=== PATIENT | female | born 1985 | race African-American/Black ===

== ENCOUNTER 2016-11-22 09:46 | Emergency (ER) | payer BC ==
[~2016-11-22] VITALS: Wt 69.0 kg
[2016-11-22] MEDS ORDERED: ONDANSETRON (ODT) 4 MG TAB ODT STA (10:17)
[2016-11-22 10:20] LABS: URINE BLOOD (Dip) POC 3+ (NEGATIVE)
--- NOTE | 2016-11-22 10:35 | ERD ---
ER Documentation Chief Complaint Date/Time DATE: 11/22/16 TIME: 10:32 Chief Complaint VAG BLEED ? WEEKS PREG HPI This is a 31-year-old female who presents to emergency department today for vaginal bleeding that started yesterday. Patient states that she thinks she passed a clot. Since that she has had some lower abdominal cramping and some nausea. States that she recently took a home test that was positive. She is unsure how many weeks she is. States she took Tylenol last night for pain. Denies any fevers or chills. ROS All systems reviewed and are negative except as per history of present illness. Medications Home Meds Active Scripts Ondansetron Hcl* (Zofran*) 4 Mg Tablet, 4 MG PO Q6H for NAUSEA AND/OR VOMITING, #30 TAB Prov:FABRIZIO KELLOGG PA-C 11/22/16 Acetaminophen* (Tylophen*) 500 Mg Capsule, 1 CAP PO Q6H Y for PAIN AND OR ELEVATED TEMP, #30 CAP Prov:FABRIZIO KELLOGG PA-C 11/22/16 Nitrofurantoin Monohyd Macrocr* (Macrobid*) 100 Mg Capsr, 100 MG PO BID for 7 Days, CAP Prov:FABRIZIO KELLOGG PA-C 11/22/16 Allergies Allergies: Coded Allergies: No Known Allergy (Unverified , 11/22/16) PMhx/Soc Hx Alcohol Use: Yes Hx Substance Use: No Hx Tobacco Use: No Physical Exam Vitals Vital Signs Date Time Temp Pulse Resp B/P Pulse Ox O2 Delivery O2 Flow Rate FiO2 11/22/16 09:49 98.0 82 18 135/64 99 Physical Exam Const: No acute distress Head: Atraumatic Eyes: Normal Conjunctiva ENT: Normal External Ears, Nose and Mouth. Neck: Full range of motion..~ No meningismus. Resp: Clear to auscultation bilaterally Cardio: Regular rate and rhythm, no murmurs Abd: Soft, mild suprapubic tenderness non distended. Normal bowel sounds. No right lower quadrant pain. No left lower quadrant pain. No tenderness at McBurney's. Skin: No petechiae or rashes Neur: Awake and alert Psych: Normal Mood and Affect Result Diagram: 11/22/16 1035 Results 24 hrs Laboratory Tests Test 11/22/16 10:10 11/22/16 10:20 11/22/16 10:35 Urine Bacteria MANY Urine Bilirubin NEGATIVE Urine Clarity CLEAR Urine Color LT. YELLOW Urine Epithelial Cells MANY Urine Glucose NEGATIVE% Urine Hemoglobin 3+ Urine Ketones 15 Urine Leukocyte Esterase 1+ Urine Microscopic RBC >50/HPF Urine Microscopic WBC 25-50/HPF Urine Nitrite NEGATIVE Urine Specific [place] 1.015 Urine Total Protein TRACE Urine Urobilinogen 0.2 E.U./dL Urine pH 6.0 Bedside Urine Blood 3+ Bedside Urine Glucose (UA) Negative Bedside Urine Ketones (LAB) 1+ Bedside Urine Leukocyte Esterase (L Trace Bedside Urine Nitrite (LAB) Negative Bedside Urine Protein (LAB) 1+ Bedside Urine pH (LAB) 5.5 Basophils # 0.110^3/ul Basophils % 0.8% Beta HCG, Quantitative 28.9mIU/ml Eosinophils # 0.110^3/ul Eosinophils % 1.1% Hematocrit 38.1% Hemoglobin 12.9g/dl Lymphocytes # 1.610^3/ul Lymphocytes % 20.4% Mean Corpuscular Hemoglobin 29.2pg Mean Corpuscular Hemoglobin Concent 33.9g/dl Mean Corpuscular Volume 86.0fl Mean Platelet Volume 8.1fl Monocytes # 0.310^3/ul Monocytes % 3.3% Neutrophils # 5.710^3/ul Neutrophils % 74.4% Nucleated Red Blood Cells # 0.010^3/ul Nucleated Red Blood Cells % 0.0/100WBC Platelet Count 23419^3/UL Red Blood Count 4.4410^6/ul Red Cell Distribution Width 12.6% White Blood Count 7.710^3/ul Current Medications Medications (Trade) Dose Ordered Sig/Tonio Route PRN Reason Start Time Stop Time Status Last Admin Dose Admin Ondansetron HCl (Zofran Odt) 4 mg ONCE STAT ODT 11/22/16 10:17 11/22/16 10:18 DC 11/22/16 10:27 DIAGNOSTIC IMAGING REPORT Patient: TRAN FARMER : 1985 Age: 31 Sex: F MR #: [id number] DOS: 11/22/16 1029 Ordering MD: FABRIZIO KELLOGG PA-C Location: [facility] Room/Bed: PROCEDURE: US OB. CLINICAL INDICATION: Vaginal Bleed () TECHNIQUE: Transabdominal and transvaginal views of the pelvis are available for review. COMPARISON: No prior studies are available for comparison. FINDINGS: The uterus is present with no pole, or gestational sac identified. The endometrium measures 2 mm. Both ovaries are normal in size. The right ovary measures 3.7 x 2.2 x 3.2 cm. The left ovary measures 1.7 x 1.3 by 2.1 cm. No ovarian or adnexal mass lesion is seen. There is no free fluid. IMPRESSION: 1. No intrauterine identified at this time. Findings may be due to missed . Recommend correlation with serial beta HCG levels as well as follow-up pelvic ultrasound to exclude ectopic or early IUP . RPTAT: HSM .Harriett Stiles MD, MD Date Time Electronically viewed and signed by .Harriett Stiles MD, on 11/22/2016 11:22 .M/ CC: FABRIZIO KELLOGG PA-C Procedures/[facility] This is a A3 31-year-old female presents to the emergency department today for some vaginal bleeding that started yesterday. Patient stated she took a home test that was unsure how anemic she was. I did do a urine test here in the emergency department and it was difficult to ascertain whether was positive or negative per the nursing report. Given this I did obtain a complete OB workup. Laboratory work shows no elevated white blood cell count. She is not anemic. Platelets are within normal limits. UA shows 1+ leukocyte esterase. Beta Quant hCG 28.9 Rh status A + Ultrasound shows the uterus is present with no pole or gestational sac identified. There is no intrauterine identified at this time. Findings due to missed . No ovarian or adnexal masses seen. There is no free fluid. Patient's symptoms of vaginal spotting that started yesterday consistent with possible missed versus normal versus early failed . Patient has no right or left lower quadrant pain. She did report some abdominal cramping. I do have low suspicion for ectopic , tubo-ovarian abscess or ovarian torsion however cannot rule out ectopic at this time. Patient was instructed to follow-up in 48 hours for repeat beta Quant and ultrasound. Patient understood. I have explained all results with the patient. She was instructed to get a repeat beta quant in 48 hours as well as a repeat ultrasound. I have also notified her that she may continue to have some vaginal bleeding Patient declined pain medication here in the emergency department. She did accept Zofran for nausea. I'll give the patient a prescription for Tylenol and Zofran and Macrobid. At this time the patient is stable for discharge and outpatient management. Patient should follow up with their PCP in the next 1-2 days. They may return to the emergency department sooner for any persistent or worsening of symptoms. Patient understood and agreed with the plan. Departure Diagnosis: Primary Impression: Vaginal bleeding in patient at less than 20 weeks gestation Condition: FABRIZIO Garcia PA-C Nov 22, 2016 10:35
[2016-11-22 10:52] LABS: BASOPHIL # 0.1 10^3/ul (0.0-0.1); BASOPHILS % 0.8 % (0.0-2.0); EOSINOPHILS # 0.1 10^3/ul (0.0-0.5); EOSINOPHILS % 1.1 % (0.0-7.0); HEMATOCRIT 38.1 % (37.0-47.0); HEMOGLOBIN 12.9 g/dl (12.0-16.0); LYMPHOCYTES # 1.6 10^3/ul (0.8-2.9); LYMPHOCYTES % 20.4 % (15.0-51.0); MEAN CORPUSCULAR HEMOGLOBIN 29.2 pg (29.0-33.0); MEAN CORPUSCULAR HGB CONC 33.9 g/dl (32.0-37.0); MEAN PLATELET VOLUME 8.1 fl (7.4-10.4); MONOCYTE # 0.3 10^3/ul (0.3-0.9); MONOCYTES % 3.3 % (0.0-11.0); NEUTROPHIL # 5.7 10^3/ul (1.6-7.5); NEUTROPHILS % 74.4 % (39.0-77.0); PLATELET COUNT 260 10^3/UL (140-440); RED BLOOD COUNT 4.44 10^6/ul (4.20-5.40); RED CELL DISTRIBUTION WIDTH 12.6 % (11.5-14.5); UNCORRECTED WBC 7.7 10^3/ul (4.8-10.8); WHITE BLOOD COUNT 7.7 10^3/ul (4.8-10.8)
[2016-11-22 10:56] LABS: CONDITION 1
[2016-11-22 11:09] LABS: ADD UMIC YES; URINE BILIRUBIN (Dip) NEGATIVE (NEGATIVE); URINE BLOOD (Dip) 3+ (NEGATIVE); URINE COLOR LT. YELLOW (YELLOW); URINE GLUCOSE (Dip) NEGATIVE (NEGATIVE); URINE KETONES (Dip) 15 (NEGATIVE); URINE LEUKOCYTE ESTERASE (Dip) 1+ (NEGATIVE); URINE NITRITE (Dip) NEGATIVE (NEGATIVE); URINE TOTAL PROTEIN (Dip) TRACE (NEGATIVE); URINE UROBILINOGEN (Dip) 0.2 E.U./dL (0.1-1.0)
--- NOTE | 2016-11-22 11:22 | RADRPT ---
PROCEDURE: US OB. CLINICAL INDICATION: Vaginal Bleed () TECHNIQUE: Transabdominal and transvaginal views of the pelvis are available for review. COMPARISON: No prior studies are available for comparison. FINDINGS: The uterus is present with no pole, or gestational sac identified. The endometrium measures 2 mm. Both ovaries are normal in size. The right ovary measures 3.7 x 2.2 x 3.2 cm. The left ovary measu res 1.7 x 1.3 by 2.1 cm. No ovarian or adnexal mass lesion is seen. There is no free fluid. IMPRESSION: 1. No intrauterine identified at this time. Findings may be due to missed . Rec ommend correlation with serial beta HCG levels as well as follow-up pelvic ultrasound to exclude ect opic or early IUP . RPTAT: HSM .Harriett Stiles MD, Date Time Electronically viewed and signed by .Harriett Stiles MD, on 11/22/2016 11:22 .M/
[2016-11-22 11:55] LABS: BACTERIA,URINE MANY; URINE RBCS >50 /HPF (0)
[2016-11-22] MEDS ORDERED: NITR-58 PO (12:23)
[2016-11-22] MEDS ORDERED: ACET500C5 PO (12:24)
[2016-11-22] MEDS ORDERED: ONDA4TAB8 PO (12:24)
[2016-11-22 12:32] VITALS: BP 126/66; PULSE 70; RESP 18; TEMP 98
== END 2016-11-22 12:33 | disposition home or self-care (01) ==
LOC: FTE 09:46
DX: O20.9 Hemorrhage in early pregnancy, unspecified (principal); O99.89 Other specified diseases and conditions complicating pregnancy, childbirth and the puerperium; R11.0 Nausea; R10.2 Pelvic and perineal pain; Z3A.00 Weeks of gestation of pregnancy not specified
CPT/HCPCS: 36415; 76801; 76817; 81001; 84702; 85025; 86900; 86901; 99284; Z7610; 81003

== ENCOUNTER 2017-07-29 14:39 | Emergency (ER) | payer BC ==
[~2017-07-29] VITALS: Ht 165.1 cm; Wt 63.5 kg
[~2017-07-29 14:39] MED LIST: ACET500C5 PO; NITR-58 PO; ONDA4TAB8 PO
[2017-07-29 14:44] VITALS: Ht 165.1 cm; Wt 63.5 kg
[2017-07-29] MEDS ORDERED: METOCLOPRAMIDE 10 MG INJ IV ONE (16:30)
[2017-07-29] MEDS ORDERED: DIPHENHYDRAMINE 50 MG INJ IV ONE (16:30)
[2017-07-29] MEDS ORDERED: SOD CHLORIDE 0.9% 1,000 ML IV ONE (16:30)
--- NOTE | 2017-07-29 16:46 | RADRPT ---
PROCEDURE: US orbits. CLINICAL INDICATION: Bilateral visual disturbance. TECHNIQUE: High-resolution sonography of the orbits was performed in the axial and sagittal planes . COMPARISON: None. FINDINGS: Both globes are normal with no evidence of retinal detachment. The anterior and posterior chambers are normal bilaterally with no region of abnormal echogenicity. IMPRESSION: 1. Normal bilateral orbital ultrasound. RPTAT: QQ .Roddy Choudhary MD, MD Date Time Electronically viewed and signed by .Roddy Choudhary MD, MD on 07/29/2017 16:46 .R/
[2017-07-29 17:30] LABS: BASOPHILS % 0.2 % (0.0-2.0); EOSINOPHILS # 0.1 10^3/ul (0.0-0.5); EOSINOPHILS % 1.3 % (0.0-7.0); HEMATOCRIT 41.2 % (37.0-47.0); HEMOGLOBIN 13.5 g/dl (12.0-16.0); LYMPHOCYTES # 2.7 10^3/ul (0.8-2.9); LYMPHOCYTES % 26.8 % (15.0-51.0); MEAN CORPUSCULAR HGB CONC 32.8 g/dl (32.0-37.0); MEAN CORPUSCULAR VOLUME 88.4 fl (82.0-101.0); MEAN PLATELET VOLUME 10.6 fl (7.4-10.4); MONOCYTE # 0.6 10^3/ul (0.3-0.9); MONOCYTES % 5.9 % (0.0-11.0); NEUTROPHIL # 6.7 10^3/ul (1.6-7.5); NEUTROPHILS % 65.5 % (39.0-77.0); PLATELET COUNT 354 10^3/UL (140-415); RED BLOOD COUNT 4.66 10^6/ul (4.20-5.40); RED CELL DISTRIBUTION WIDTH 12.6 % (11.5-14.5); WHITE BLOOD COUNT 10.2 10^3/ul (4.8-10.8)
[2017-07-29 17:31] LABS: ADD UMIC NO; UR ASCORBIC ACID 20 mg/dL (NEGATIVE); UR BILIRUBIN (Dip) NEGATIVE (NEGATIVE); UR BLOOD (Dip) NEGATIVE (NEGATIVE); UR CLARITY CLEAR (CLEAR); UR COLOR STRAW (YELLOW); UR GLUCOSE (Dip) NEGATIVE (NEGATIVE); UR KETONES (Dip) NEGATIVE (NEGATIVE); UR LEUKOCYTE ESTERASE (Dip) NEGATIVE Leu/ul (NEGATIVE); UR NITRITE (Dip) NEGATIVE (NEGATIVE); UR SPECIFIC GRAVITY (Dip) 1.009 (1.003-1.030); UR TOTAL PROTEIN (Dip) NEGATIVE (NEGATIVE); UR UROBILINOGEN (Dip) NEGATIVE (NEGATIVE)
[2017-07-29 17:52] LABS: CREATININE 0.74 mg/dl (0.44-1.00)
--- NOTE | 2017-07-29 18:07 | RADRPT ---
PROCEDURE: CT Head without. CLINICAL INDICATION: Headache. TECHNIQUE: The study was performed utilizing a multi-slice, multidetector CT scanner. Direct spira l 1 mm axial sections were obtained through the head without the use of intravenous contrast materia l. 1 or more of the following dose reduction techniques were utilized: Automated exposure control, adjustment of the mA and/or kV according to patient's size, iterative reconstruction technique. Co toney and sagittal reformations were obtained. The images were reviewed on a PACS workstation. RADIATION DOSE: CTDIvol: 40.3 mGyDLP: 802.9 mGy-cm COMPARISON: No prior studies are available for comparison. FINDINGS: There is no intracranial hemorrhage, extra-axial fluid collection, mass lesion, midline shift or hyd rocephalus. The ventricles, sulci and cisterns are within normal limits. The white matter is unrem arkable. The owusu-white matter differentiation is preserved. The basal cisterns are patent. The m idline structures are intact. The orbits, calvarium and extracranial soft tissues are normal in champ earance. The visualized paranasal sinuses, mastoid air cells and middle ear cavities are normally ae rated. IMPRESSION: 1. No acute intracranial abnormality. No intracranial hemorrhage, extra-axial fluid collection, ma ss lesion or hydrocephalous. RPTAT: HGAS .Adilson Vasquez MD, MD Date Time Electronically viewed and signed by .Adilson Vasquez MD, MD on 07/29/2017 18:07 .S/
--- NOTE | 2017-07-29 18:28 | ERD ---
ER Documentation Chief Complaint Date/Time DATE: 07/29/17 TIME: 18:22 Chief Complaint headache x 4 days HPI 32 year-old female patient with no significant past medical history presents the ED complaining of a headache that started 4 days ago. Reports that it is associated with seeing black floaters in her periphery. Denies seeing any hallucinations, disturbances. Denies any suicidal or homicidal ideations. Reports she has one episode of fainting. Denies any fever, chills, nausea, vomiting, diarrhea, chest pain, shortness of breath. ROS All systems reviewed and are negative except as per history of present illness. Medications Home Meds Active Scripts Ondansetron Hcl* (Zofran*) 4 Mg Tablet, 4 MG PO Q6H for NAUSEA AND/OR VOMITING, #30 TAB Prov:FABRIZIO KELLOGG PA-C 11/22/16 Acetaminophen* (Tylophen*) 500 Mg Capsule, 1 CAP PO Q6H Y for PAIN AND OR ELEVATED TEMP, #30 CAP Prov:FABRIZIO KELLOGG PA-C 11/22/16 Nitrofurantoin Monohyd Macrocr* (Macrobid*) 100 Mg Capsr, 100 MG PO BID for 7 Days, CAP Prov:FABRIZIO KELLOGG PA-C 11/22/16 Allergies Allergies: Coded Allergies: No Known Allergy (Unverified , 11/22/16) PMhx/Soc Hx Alcohol Use: Yes Hx Substance Use: No Hx Tobacco Use: No Physical Exam Vitals Vital Signs Date Time Temp Pulse Resp B/P Pulse Ox O2 Delivery O2 Flow Rate FiO2 07/29/17 18:44 76 16 118/53 98 Room Air 07/29/17 14:44 98.4 88 18 124/67 98 Physical Exam Const: Bpb-[id number]-bopclraed, well-nourished. In no acute distress. Head: Atraumatic, normocephalic Eyes: Normal Conjunctiva without injection. No purulent discharge. PERRLA. EOMI ENT: Normal external ear. Ear canal without erythema. Tympanic membrane pearly owusu without effusion or bulging. Nasal canal clear with normal turbinates. Moist oropharynx without tonsillar exudates. Non-erythematous pharynx. Uvula midline. No drooling. No trismus. Neck: No cervical midline tenderness. Full range of motion. No meningismus. No cervical lymphadenopathy. No JVD. Resp: Clear to auscultation bilaterally. No wheezing, rhonchi, rales, or crackles. No accessory muscle use. No retractions. Cardio: Regular rate and rhythm. No murmurs, rubs or gallops. Abd: Soft, non tender, non distended. Normal bowel sounds. No palpable masses. No rebound tenderness. No guarding. Negative McBurney's Point. Negative Gordon's Sign. Skin: Normal skin turgor. No petechiae or rashes Back: No midline tenderness. No CVA tenderness. Ext: No cyanosis, or edema. Distal pulses intact bilaterally. Neur: Awake and alert. Normal gait. Normal coordination. Cranial Nerves II- VII intact. Normal finger to nose. Muscle strength 5/5. Sensation intact. Psych: Normal Mood and Affect Result Diagram: 07/29/17 1720 07/29/17 1720 Results 24 hrs Laboratory Tests Test 07/29/17 16:40 07/29/17 17:20 Urine Color STRAW Urine Clarity CLEAR Urine pH 5.0 Urine Specific [place] 1.009 Urine Ketones NEGATIVEmg/dL Urine Nitrite NEGATIVEmg/dL Urine Bilirubin NEGATIVEmg/dL Urine Urobilinogen NEGATIVEmg/dL Urine Leukocyte Esterase NEGATIVELeu/ul Urine Hemoglobin NEGATIVEmg/dL Urine Glucose NEGATIVEmg/dL Urine Total Protein NEGATIVEmg/dl White Blood Count 10.210^3/ul Red Blood Count 4.6610^6/ul Hemoglobin 13.5g/dl Hematocrit 41.2% Mean Corpuscular Volume 88.4fl Mean Corpuscular Hemoglobin 29.0pg Mean Corpuscular Hemoglobin Concent 32.8g/dl Red Cell Distribution Width 12.6% Platelet Count 25289^3/UL Mean Platelet Volume 10.6fl Neutrophils % 65.5% Lymphocytes % 26.8% Monocytes % 5.9% Eosinophils % 1.3% Basophils % 0.2% Nucleated Red Blood Cells % 0.0/100WBC Neutrophils # 6.710^3/ul Lymphocytes # 2.710^3/ul Monocytes # 0.610^3/ul Eosinophils # 0.110^3/ul Basophils # 0.010^3/ul Nucleated Red Blood Cells # 0.010^3/ul Sodium Level 142mmol/L Potassium Level 4.0mmol/L Chloride Level 105mmol/L Carbon Dioxide Level 28mmol/L Anion Gap 13 Blood Urea Nitrogen 10mg/dl Creatinine 0.74mg/dl Glucose Level 81mg/dl Calcium Level 10.0mg/dl Current Medications Medications (Trade) Dose Ordered Sig/Tonio Route PRN Reason Start Time Stop Time Status Last Admin Dose Admin Diphenhydramine HCl (Benadryl) 25 mg ONCE ONCE IV 07/29/17 16:30 07/29/17 16:31 DC 07/29/17 17:01 Metoclopramide HCl 10 mg 10 mg ONCE ONCE IV 07/29/17 16:30 07/29/17 16:31 DC 07/29/17 17:01 Sodium Chloride (NS) 1,000 ml @ 1,000 mls/hr Q1H ONCE IV 07/29/17 16:30 07/29/17 17:29 DC 07/29/17 17:02 Procedures/MDM 32-year-old female patient with no significant past medical history presents the ED complaining of headache, blurred vision, seeing floaters. Patient is afebrile and nontoxic-appearing. Patient has normal vital signs. Discussed with my supervising physician, Dr. Mills who stated that we can further workup patient with a CT of the brain without contrast, ultrasound to visualize and rule out any retinal detachments, visual acuity, EKG, CBC, BMP. Patient was treated here in the ED with 1 L of normal saline, Benadryl, Reglan with improvement of her symptoms. CBC: No leukocytosis. No e/o of systemic infection. No e/o anemia. CMP: No e/o severe acidosis, alkalosis, renal failure, diabetic ketoacidosis Lipase within normal limits. Urine: No leukocyte esterase, no nitrites, no hematuria. EKG reviewed and interpreted by Dr. Mills Rate/Rhythm: [91 bpm, Normal Sinus Rhythm] No ectopy, no ST elevations, normal axis. QRS, ST, T-waves: [No changes consistent w/ acute ischemia] Impression: [No evidence of ischemia or arrhythmia] PROCEDURE: CT Head without. CLINICAL INDICATION: Headache. TECHNIQUE: The study was performed utilizing a multi-slice, multidetector CT scanner. Direct spiral 1 mm axial sections were obtained through the head without the use of intravenous contrast material. 1 or more of the following dose reduction techniques were utilized: Automated exposure control, adjustment of the mA and/or kV according to patient's size, iterative reconstruction technique. Coronal and sagittal reformations were obtained. The images were reviewed on a PACS workstation. RADIATION DOSE: CTDIvol: 40.3 mGy DLP: 802.9 mGy-cm COMPARISON: No prior studies are available for comparison. FINDINGS: There is no intracranial hemorrhage, extra-axial fluid collection, mass lesion, midline shift or hydrocephalus. The ventricles, sulci and cisterns are within normal limits. The white matter is unremarkable. The owusu-white matter differentiation is preserved. The basal cisterns are patent. The midline structures are intact. The orbits, calvarium and extracranial soft tissues are normal in appearance. The visualized paranasal sinuses, mastoid air cells and middle ear cavities are normally aerated. IMPRESSION: 1. No acute intracranial abnormality. No intracranial hemorrhage, extra-axial fluid collection, mass lesion or hydrocephalous. PROCEDURE: US orbits. CLINICAL INDICATION: Bilateral visual disturbance. TECHNIQUE: High-resolution sonography of the orbits was performed in the axial and sagittal planes. COMPARISON: None. FINDINGS: Both globes are normal with no evidence of retinal detachment. The anterior and posterior chambers are normal bilaterally with no region of abnormal echogenicity. IMPRESSION: 1. Normal bilateral orbital ultrasound. Low suspicion for acute myocardial infarction, pneumothorax, pneumonia, cardiac tamponade, acute glaucoma, retinal detachment, pulmonary embolism, AAA, aortic dissection, thoracic aortic dissection, endocarditis, pericarditis, cocaine- related ischemia, Boerhaave's syndrome, cardiac dysrhythmias,meningitis, intracranial bleed, seizure, stroke, TIA or other emergent conditions. Low suspicion for intracranial bleed, subarachnoid hemorrhage, meningitis, TIA, stroke, subdural hematoma, epidural hematoma, or other emergent conditions. Low suspicion for suicidal or homicidal ideations No hallucinations. No indication for telepsychiatry evaluation. Follow up with primary care physician in 1-2 days for a referral to see a neurologist. Instructed patient to return to the ED sooner for any worsening symptoms. Patient's questions were answered. Patient understood and agreed with discharge plan. Patient discharged stable. Departure Diagnosis: Primary Impression: Headache Headache type: unspecified Headache chronicity pattern: unspecified pattern Intractability: not intractable Qualified Code: R51 - Nonintractable headache, unspecified chronicity pattern, unspecified headache type Additional Impression: Blurred vision Condition: Stable Patient Instructions: Causes of Syncope, Blurred Vision, Headache, Unspecified , Syncope, Unk Cause Referrals: [facility] YOU HAVE RECEIVED A MEDICAL SCREENING EXAM AND THE RESULTS INDICATE THAT YOU DO NOT HAVE A CONDITION THAT REQUIRES URGENT TREATMENT IN THE EMERGENCY DEPARTMENT. FURTHER EVALUATION AND TREATMENT OF YOUR CONDITION CAN WAIT UNTIL YOU ARE SEEN IN YOUR DOCTORS OFFICE WITHIN THE NEXT 1-2 DAYS. IT IS YOUR RESPONSIBILITY TO MAKE AN APPOINTMENT FOR FOLOW-UP CARE. IF YOU HAVE A PRIMARY DOCTOR --you should call your primary doctor and schedule an appointment IF YOU DO NOT HAVE A PRIMARY DOCTOR YOU CAN CALL OUR PHYSICIAN REFERRAL HOTLINE AT IF YOU CAN NOT AFFORD TO SEE A PHYSICIAN YOU CAN CHOSE FROM THE FOLLOWING [facility] [address] [facility] [address] [facility] [address] [facility] [address] [facility] [address]. [facility] [address] [facility]. [facility] YOU HAVE RECEIVED A MEDICAL SCREENING EXAM AND THE RESULTS INDICATE THAT YOU DO NOT HAVE A CONDITION THAT REQUIRES URGENT TREATMENT IN THE EMERGENCY DEPARTMENT. FURTHER EVALUATION AND TREATMENT OF YOUR CONDITION CAN WAIT UNTIL YOU ARE SEEN IN YOUR DOCTORS OFFICE WITHIN THE NEXT 1-2 DAYS. IT IS YOUR RESPONSIBILITY TO MAKE AN APPOINTMENT FOR FOLOW-UP CARE. IF YOU HAVE A PRIMARY DOCTOR --you should call your primary doctor and schedule and appointment IF YOU DO NOT HAVE A PRIMARY DOCTOR YOU CAN CALL OUR PHYSICIAN REFERRAL HOTLINE AT . IF YOU CAN NOT AFFORD TO SEE A PHYSICIAN YOU CAN CHOSE FROM THE FOLLOWING [facility] INSTITUTIONS: [facility] [address] [facility] [place] [address] [facility] [facility] [address] [place] [address] [facility] [address] [place] [address] [facility] U[facility]ENT C[facility]/SPECIALTIES Additional Instructions: Call your primary care doctor TOMORROW for an appointment for a referral to see a neurologist for a MRI. See the doctor sooner or return here if your condition worsens before your appointment time. KARIN GARCIA PA-C Jul 29, 2017 18:28
[2017-07-29 18:44] VITALS: BP 118/53; PULSE 76; RESP 16
== END 2017-07-29 18:45 | disposition home or self-care (01) ==
LOC: FTE 14:39
DX: R51 Headache (principal); H53.8 Other visual disturbances; R00.2 Palpitations
CPT/HCPCS: 36415; 70450; 76536; 80048; 81003; 85025; 93005; 96374; 96375; 99285; J1200; J2765; J7030

== ENCOUNTER 2017-12-04 20:04 | Emergency (ER) | END 2017-12-04 21:00 | disposition left against medical advice (07) ==

== ENCOUNTER 2017-12-05 06:58 | Emergency (ER) | END 2017-12-05 14:14 | disposition home or self-care (01) ==

== ENCOUNTER 2018-09-22 11:08 | Emergency (ER) | END 2018-09-22 13:51 | disposition home or self-care (01) ==